=== PATIENT | female | born 1935 | race Caucasian/White ===

== ENCOUNTER 2017-04-25 12:36 | Inpatient (IN) | payer OTHER, BC ==
[~2017-04-25] VITALS: Ht 152.4 cm; Wt 63.5 kg
--- NOTE | ~2017-04-25 | EEG ---
[facility] [place] [address] [place] [address] ELECTROENCEPHALOGRAM Name: DOMINGUEZ DO Room #: 314-P ADM IN M.R.#: [id number] Admission: 04/25/17 Attend Phys: Leon Preciado MD Discharge: Date of : 33 Report #: [id number] THIS REPORT FOR: //name// CC: Aaron Preciado DATE OF SERVICE: 04/27/2017 This patient is being evaluated for altered mental status. EEG was done by placing the electrodes by standard 10-20 system of electrode placement. Both referential and sequential montages were used for recording. Background activity in this patient's EEG is about 7 Hz and 20 microvolts. It is a symmetrical activity. This patient went to sleep that is associated with bilaterally symmetrical sleep spindle and vertex sharp waves. Photic stimulation is unremarkable. Throughout the record, no active epileptiform activity was noticed. IMPRESSION: This patient's EEG is moderately abnormal because it is intermixed with theta range slowing on both sides. That is a nonspecific abnormality, which can occur with encephalopathy, effect of psychotropic medication, dementia, etc. Clinical correlation is recommended. Thank you very much for this referral. <ELECTRONICALLY SIGNED> By: Ha Leavitt MD 04/29/17 1648 [id number] Ha Leavitt MD /nt
--- NOTE | ~2017-04-25 | D ---
[facility] [place] [place] [address] DISCHARGE SUMMARY Name: HIDOMINGUEZ Room #: 314-P [facility] IN M.R.#: [id number] Admission: 04/25/17 Attend Phys: Leon Preciado MD Discharge: 04/30/17 Date of : 33 Report #: [id number] THIS REPORT FOR: //name// CC: Mahnaz Head MD [facility] Leon Preciado SUMMARY OF HISTORY AND PHYSICAL: The patient was brought to the emergency room because of generalized weakness, increased agitation, confusion and increased falls. HISTORY OF PRESENT ILLNESS: The patient and her live in the home of their son and oqvqynwp-sg-cee. The patient's son suddenly within the last 1-2 weeks and has left the entire household upset. The patient's ntpstkco-lw-lij is more than overloaded, taking care of the patient and patient's by herself, in addition to her own grief. The patient has been more agitated than usual, has been walking around at night at home and falling more. SUMMARY OF HOSPITAL COURSE: The patient was admitted and seen in neurology consultation by Dr. Head. Dr. Head performed an EEG that showed spikes and slowing, but no specific changes suggesting seizures. Treatable causes of dementia were ruled out. Because of an abnormality on the CT scan, an MRI was performed. The MRI scan showed bilateral chronic subdural fluid collections, most likely due to old subdural hematomas or hygromas. The pituitary gland was enlarged, suggesting enlargement or possibly a macroadenoma. The patient was able to ambulate the halls with standby assistance only and able to feed herself. At the time of discharge, there were no further tests that were indicated. Prior to admission, the patient had been taking quetiapine at home for behavior control. A detailed discussion was held regarding the use of antipsychotic medications for behavior control in the elderly with underlying dementia. This was held with both the patient and her uxjtyvbf-vr-hcq, who is her power of demographer. At the request of the abehdtfb-rc-bas, despite the increased risks of associated with the use of these medications, the antipsychotic medications were continued at home and also here in the hospital. With adjustments of her medications, her impulsiveness was controlled and she was easily redirectable and slept most of the night. There is a history from her outpatient experience of improved responsiveness to quetiapine and lack of responsiveness to olanzapine. She was evaluated by speech therapy because of a cough. At the time of [address] [address] DISCHARGE SUMMARY Name: DOMINGUEZ DO Room #: 314-P [facility] IN M.R.#: [id number] Admission: 04/25/17 Attend Phys: Leon Preciado MD Discharge: 04/30/17 Date of : 33 Report #: [id number] evaluation, there were clinical findings highly suggestive of aspiration on thin liquids with a regular diet. Speech therapy was unequivocal about recommending a nectar-thickened liquid diet along with mechanical soft diet. Medications are crushed and given in applesauce. She tolerated this diet well. When asked questions about how she felt, the patient was able to clearly expresses the grief and shock at the sudden bad things that had happened to her. She was not able to specifically verbalize what those things were, but did express anger at having had sudden bad things happen without warning and was clearly still agitated and upset about the event. SUMMARY OF LABORATORY DATA: Albumin was 3.6. Alkaline phosphatase minimally elevated at 120, with SGPT being low; it was less than 6 and the SGOT being 25. Creatinine was 0.9 and electrolytes were normal. EGFR was 53 and 60. WBCs were 8.4 and 9.4 thousand. Hemoglobin was 14.4, hematocrit 43.4. Segmented neutrophils were mildly elevated at 66 and lymphocytes mildly depressed at 22.3%, monocytes were mildly elevated at 13%. TSH was elevated at 7.008. Free T4, however, was at low normal at 0.82. Prolactin was elevated at 95.8 (4.8-23.3), possibly from the antipsychotic medications. Folate was normal at 10.1, B12 was low normal at 297. Morning cortisol was in the normal range at 10.6 (6.2-19.4) and methylmalonic acid was normal at 147 (0-378). Therefore, B12 supplementation was not indicated and IM B12 was discontinued. Vitamin D-125 dihydroxy was low normal at 24.1 (19.9-79.3). Alpha-tocopherol was minimally elevated at 23.3 (6.55-21.5). Complete urinalysis was negative. Chest x-ray was grossly normal. X-ray of the pelvis was also normal, degenerative changes were seen. CT scan of the head without contrast showed possible chronic subdurals and was otherwise normal for her age; extensive white matter atrophy and ischemic changes were noted. MRI scan of the head showed bilateral subdural fluid collections, larger on the right than the left, suggesting chronic subdural hematomas or hygromas. The right-sided subdural collection does have a slight mass effect upon the frontoparietal cortex. 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 Atrophy with mild chronic-appearing cerebral white matter signal changes was also seen. DISCHARGE DIAGNOSES: [facility] [address] [place] [address] DISCHARGE SUMMARY Name: HIDOMINGUEZ Room #: 314-P DIS IN M.R.#: [id number] Admission: 04/25/17 Attend Phys: Leon Preciado MD Discharge: 04/30/17 Date of : 33 Report #: [id number] 1. Multiple falls - by history, these most often occurred at night when the patient was wandering around the home un-supervised. 2. 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 3. Atypical antipsychotic medications were used successfully to control her behavior, and the restraints necessary at the time of admission were discontinued. Note: The family has received informed consented regarding the increased risk of using these medications in the elderly with dementia and is on record as having approved these medications, feeling that the benefit with quality of life outweighs the risk. 4. Bilateral chronic subdural hematomas/hygromas - see specifics in the MRI report. 5. 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 6. High risk of aspiration and speech therapy unequivocally recommended a dysphagia diet with nectar-thickened liquids and mechanical soft food. 7. Acute grief reaction - with her dementia, the patient was unable to clearly express her feelings, but was also clearly upset and angry at what happened at home immediately prior to her coming here, that was her son dying unexpectedly. 8. Hypothyroidism with a TSH of 7 and a very low normal free T4 - new diagnosis. 9. 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 10. Other medical problems as in the history and physical. PLAN: The patient is discharged to [facility] for therapies. Quetiapine 150 mg at 0700, 150 mg at 1330 and 100 mg at bedtime with the option to repeat the Seroquel bedtime dose in an hour if needed. Levothyroxine 0.025 mg once daily was started. Quetiapine 50 mg 1-2 tablets every 1-2 hours as needed p.r.n. for agitation. Donepezil 10 mg daily, citalopram 20 mg daily and memantine 10 mg twice daily. She will get physical therapy, occupational therapy and speech therapy. She is on a nectar-thickened mechanical soft diet. She is to be seen in consultation by the psychiatrist that visits the senior care. She is to have a followup visit with Dr. Head, neurologist, in approximately 2 weeks regarding the abnormalities on the MRI scan. NOTE: Given her advanced degree of her dementia, there is no clear indication for further treatment or evaluation of her pituitary tumor/enlargement. Treatment could be given using targeted radiation therapy (i.e., CyberKnife), but the advantage, if it were accomplished successfully, without side effects, is unclear. She should not receive aspirin or anticoagulation because of her [facility] [address] [place] [address] DISCHARGE SUMMARY Name: DOMINGUEZ DO Room #: 314-P DIS IN M.R.#: [id number] Admission: 04/25/17 Attend Phys: Leon Preciado MD Discharge: 04/30/17 Date of : 33 Report #: [id number] chronic subdural hematomas that indicate the number of falls she has had and head injuries in the past. Prior to discharge treatment risks and benefits with antipsychotic medications was again reviewed with the POA and approved. Also the lack of benefit on quality of life for persuing treatment for the pituitary enlargement was reviewed and agreed upon by the POA. <ELECTRONICALLY SIGNED> By: Leon Preciado MD 05/05/17 0912 1531 1743 Leon Preciado MD /nt
[2017-04-25 13:09] VITALS: BP 126/71
[2017-04-25] MEDS ORDERED: CELEXA 20 MG TA20 MG PO (13:14)
[2017-04-25] MEDS ORDERED: ARICEPT 5 MG TAB5 MG PO (13:15)
[2017-04-25] MEDS ORDERED: NAMENDA 10 MG T10 MG PO ×2 (13:15→15:12)
[2017-04-25 14:04] LABS: ABSOLUTE NEUTROPHILS 5.6 thou/uL (1.4-8.2); BASOPHILS 0.9 % (0.0-2.0); EOSINOPHILS 1.1 % (0.0-3.0); HEMATOCRIT 41.4 % (37.0-47.0); LYMPHOCYTES 22.3 % (24.0-44.0); MCH 30.6 pg (26.0-34.0); MCV 90.2 fL (80.0-100.0); MONOCYTES 9.1 % (1.0-8.0); PLATELET COUNT 327 thou/uL (150-400); POLYS 66.6 % (36.0-66.0); RBC 4.59 mil/uL (4.20-5.00); RDW 13.8 % (10.5-14.5); WBC 8.4 thou/uL (4.0-11.0)
[2017-04-25 14:07] LABS: MANUAL DIFF NO
[2017-04-25 14:07] LABS: URINE BILIRUBIN NEGATIVE (Negative); URINE BLOOD NEGATIVE (Negative); URINE COLOR YELLOW; URINE GLUCOSE-RANDOM* NEGATIVE (Negative); URINE KETONES NEGATIVE (Negative); URINE LEUKOCYTES-REFLEX NEGATIVE (Negative); URINE PROTEIN (DIPSTICK) NEGATIVE (Negative)
[2017-04-25 15:07] LABS: CALCIUM 8.7 mg/dL (8.5-10.1); POTASSIUM 3.9 mmol/L (3.5-5.1)
[2017-04-25] MEDS ORDERED: QUETIAPINE FUM100 MG PO (15:13)
[2017-04-25 17:20] VITALS: BP 139/72
[2017-04-26] VITALS: BP 135/81
[2017-04-26 04:34] LABS: HEMATOCRIT 43.4 % (37.0-47.0); HEMOGLOBIN 14.4 gm/dL (12.0-15.0); MCH 30.1 pg (26.0-34.0); MCHC 33.2 g/dL (28.0-37.0); MCV 90.5 fL (80.0-100.0); RBC 4.79 mil/uL (4.20-5.00); RDW 13.6 % (10.5-14.5); WBC 9.4 thou/uL (4.0-11.0)
[2017-04-26 04:38] LABS: MANUAL DIFF YES
[2017-04-26 04:57] LABS: ALBUMIN 3.6 g/dL (3.4-5.0); ALKALINE PHOSPHATASE 120 U/L (46-116); ANION GAP 12 mmol/L (7-16); BUN 11 mg/dL (7-18); CALCIUM 9.2 mg/dL (8.5-10.1); CHLORIDE 105 mmol/L (98-107); CO2 24 mmol/L (21-32); CREATININE 0.9 mg/dL (0.6-1.0); GLUCOSE 96 mg/dL (74-106); SGOT 25 U/L (15-37); SODIUM 141 mmol/L (136-145); TOTAL BILIRUBIN 0.4 mg/dL (<0.1-1.0); TOTAL PROTEIN 7.5 g/dL (6.4-8.2)
[2017-04-26 05:00] LABS: SGPT < 6 U/L (30-65)
[2017-04-26 05:04] LABS: ABSOLUTE NEUTROPHILS 3.9 thou/uL (1.4-8.2); ATYPICAL LYMPHS 1 %; TOTAL CELL COUNT 100
[2017-04-26 05:14] LABS: PLATELET COUNT ND thou/uL (150-400)
[2017-04-26 11:05] LABS: FREE T4 0.82 ng/dL (0.82-1.77); PROLACTIN 95.8 ng/mL (4.8-23.3)
[2017-04-26 17:35] VITALS: BP 122/60
[2017-04-26 20:00] VITALS: BP 127/68
[2017-04-27 04:00] VITALS: BP 105/56
[2017-04-27 08:10] VITALS: BP 123/63
[2017-04-27 09:25] LABS: FOLIC ACID 11.7 ng/mL (8.6-58.9)
[2017-04-27 17:41] VITALS: BP 125/74
[2017-04-27 19:37] VITALS: BP 136/82
[2017-04-28 04:40] VITALS: BP 105/67
[2017-04-28 08:05] VITALS: BP 100/55
[2017-04-28 16:16] VITALS: BP 149/89
[2017-04-28 19:43] VITALS: BP 143/66
[2017-04-29 05:27] VITALS: BP 135/72
[2017-04-29 08:29] VITALS: BP 138/73
[2017-04-29 19:53] VITALS: BP 103/81
[2017-04-30 04:39] VITALS: BP 100/68
[2017-04-30] MEDS ORDERED: A THRU Z ADVAN1 EAC1 PO (10:41)
[2017-04-30] MEDS ORDERED: SEROQUEL 100 M100 MG PO ×3 (10:41)
[2017-04-30] MEDS ORDERED: SEROQUEL 50 MG50 MG PO (13:40)
[2017-04-30] MEDS ORDERED: ARICEPT 5 MG TAB5 MG PO (13:40)
[2017-04-30] MEDS ORDERED: NAMENDA 10 MG T10 MG PO (13:40)
[2017-04-30] MEDS ORDERED: CELEXA 20 MG TA20 MG PO (13:40)
[2017-04-30] MEDS ORDERED: LEVOTHYROXIN0.025 MG PO (13:40)
[2017-04-30 14:08] LABS: ALPHA TOCOPHEROL 23.3 mg/L (6.5-21.5)
== END 2017-04-30 15:30 | DRG 56 ==
LOC: ER 12:36 → 3N 14:51 → EROBS 14:51 → 3N 17:13
PROVIDERS: Internal Medicine; Physician Assistant; Psychiatry & Neurology Neurology
DX: G30.9 Alzheimer's disease, unspecified (principal); G93.41 Metabolic encephalopathy; F02.81 Dementia in other diseases classified elsewhere, unspecified severity, with behavioral disturbance; E22.1 Hyperprolactinemia; R29.6 Repeated falls; D18.1 Lymphangioma, any site; E03.9 Hypothyroidism, unspecified; E53.8 Deficiency of other specified B group vitamins
CPT/HCPCS: 10096

== ENCOUNTER 2017-11-13 20:01 | Emergency (ER) | payer OTHER, BC ==
[~2017-11-13] VITALS: Ht 162.6 cm; Wt 63.5 kg
--- NOTE | ~2017-11-13 | EKG ---
[place] [address] [email or web address] [address] ELECTROCARDIOGRAM REPORT Name: DOMINGUEZ DO Room #: ELLI Ravi#: [id number] Admission: 11/13/17 Attend Phys: Discharge: 11/13/17 Date of : 33 Report #: [id number] THIS REPORT FOR: //name// [facility] ED Test Date: 2017-11-13 Test Time: 20:31:44 Pat Name: DOMINGUEZ DO Department: Room: Gender: F [employer] Hel[employer]: CARMENCITA : 1935 Requested By: Armani Chaudhary Order Number: [id number] MD: Edgar Rankin Measurements Intervals [place] Rate: 70 P: 52 [place]: 161 QRS: -11 QRSD: 137 T: 71 QT: 437 QTc: 472 Interpretive Statements Sinus rhythm Left bundle branch block No previous ECG available for comparison Electronically Signed On 11-15-2017 14:05:20 BMX RIDER by Edgar Rankin [email or web address] <ELECTRONICALLY SIGNED> By: Edgar Rankin MD, [facility] 11/15/17 1405 30 30 Edgar Rankin MD, FACC /EPI
[~2017-11-13 20:01] MED LIST: A THRU Z ADVAN1 EAC1 PO; ARICEPT 5 MG TAB5 MG PO; CELEXA 20 MG TA20 MG PO; LEVOTHYROXIN0.025 MG PO; NAMENDA 10 MG T10 MG PO; QUETIAPINE FUM100 MG PO; SEROQUEL 100 M100 MG PO; SEROQUEL 50 MG50 MG PO
[2017-11-13] MEDS ORDERED: SENNA S TABLET1 EACH PO (20:12)
[2017-11-13] MEDS ORDERED: SYNTHROID112 MCG PO (20:12)
[2017-11-13] MEDS ORDERED: LIPITOR 20 MG T20 M1 PO (20:13)
[2017-11-13] MEDS ORDERED: MEGESTROL40 MG/1 M1 PO (20:13)
[2017-11-13] MEDS ORDERED: REMERON15 MG PO (20:14)
[2017-11-13] MEDS ORDERED: SEROQUEL 50 MG50 MG PO (20:15)
[2017-11-13] MEDS ORDERED: QUETIAPINE FUM100 MG PO (20:16)
[2017-11-13] MEDS ORDERED: SEROQUEL 50 MG50 M1 PO (20:16)
[2017-11-13] MEDS ORDERED: HYDRALAZINE 2525 MG PO (20:18)
[2017-11-13] MEDS ORDERED: ACETAMINOPHEN325 MG PO (20:18)
[2017-11-13] MEDS ORDERED: [UNRECOGNIZED DRUG - OTHER] (20:19)
[2017-11-13 21:21] LABS: ABSOLUTE NEUTROPHILS 6.8 thou/uL (1.4-8.2); BASOPHILS 0.5 % (0.0-2.0); EOSINOPHILS 1.3 % (0.0-3.0); HEMATOCRIT 44.4 % (37.0-47.0); HEMOGLOBIN 14.9 gm/dL (12.0-15.0); MCH 31.5 pg (26.0-34.0); MCHC 33.7 g/dL (28.0-37.0); MCV 93.5 fL (80.0-100.0); MONOCYTES 10.3 % (1.0-8.0); PLATELET COUNT 378 thou/uL (150-400); POLYS 67.9 % (36.0-66.0); RBC 4.75 mil/uL (4.20-5.00); RDW 13.7 % (10.5-14.5); WBC 10.1 thou/uL (4.0-11.0)
[2017-11-13 21:35] LABS: ANION GAP 11 mmol/L (7-16); BUN 20 mg/dL (7-18); CALCIUM 8.9 mg/dL (8.5-10.1); CHLORIDE 105 mmol/L (98-107); CO2 21 mmol/L (21-32); CREATININE 1.3 mg/dL (0.6-1.0); GLUCOSE 126 mg/dL (74-106); POTASSIUM 3.6 mmol/L (3.5-5.1); SODIUM 137 mmol/L (136-145)
[2017-11-13 21:43] LABS: TROPONIN-I < 0.04 ng/mL (<0.06)
[2017-11-13 23:12] VITALS: BP 92/54
== END 2017-11-13 23:13 | disposition home or self-care (01) ==
LOC: ER 20:01
PROVIDERS: Nurse Practitioner
DX: S00.83XA Contusion of other part of head, initial encounter (principal); G30.9 Alzheimer's disease, unspecified; F02.80 Dementia in other diseases classified elsewhere, unspecified severity, without behavioral disturbance, psychotic disturbance, mood disturbance, and anxiety; W18.39XA Other fall on same level, initial encounter; Y93.89 Activity, other specified; Y92.89 Other specified places as the place of occurrence of the external cause; Y99.8 Other external cause status